=== PATIENT | male | born 1935 | race African-American/Black ===

== ENCOUNTER 2019-05-30 20:26 | Emergency (ER) | payer OTHER ==
[~2019-05-30] VITALS: Ht 167.6 cm; Wt 68.0 kg
[2019-05-31 00:04] LABS: CHLORIDE 111 mEq/L (98-107)
[2019-05-31 00:13] LABS: HEMATOCRIT. 29.5 % (42.0-52.0); MEAN CORPUSCULAR HEMOGLOBIN 32.5 pg (28.0-32.0); MEAN CORPUSCULAR VOLUME 96.2 fL (80.0-94.0); MEAN PLATELET VOLUME 9.1 fl (7.4-10.4); PLATELET 219 x1000/uL (130-400); RED BLOOD CELL COUNT 3.07 mill/uL (4.7-6.1); RED CELL DISTRIBUTION WIDTH 17.4 % (11.6-14.6)
[2019-05-31 01:15] LABS: PLATELET ESTIMATE NORMAL
[2019-05-31] MEDS: SODIUM CHLORIDE 0.9% 1,000 ML IV ONE (01:45)
[2019-05-31] MEDS: CEFTRIAXONE 1 G PREMIX 50 ML IV NR (02:30)
[2019-05-31 04:56] LABS: CLARITY URINE CLOUDY (CLEAR); COLOR URINE DARK YELLOW (YELLOW); KETONES URINE NEGATIVE (NEGATIVE); LEUKOCYTE ESTERASE URINE 1+ (NEGATIVE); NITRITE URINE NEGATIVE (NEGATIVE); OCCULT BLOOD URINE 3+ (NEGATIVE); PROTEIN URINE 3+ (NEGATIVE); SPECIFIC GRAVITY URINE 1.019 (1.005-1.030); UROBILINOGEN URINE 0.2 E.U./dL (0.2-1.0)
[2019-05-31 06:17] VITALS: BP 162/73
== END 2019-05-31 06:58 | disposition short-term general hospital (02) ==
LOC: ER 20:26
DX: R53.1 Weakness (principal); K72.90 Hepatic failure, unspecified without coma; N39.0 Urinary tract infection, site not specified; C49.4 Malignant neoplasm of connective and soft tissue of abdomen; I10 Essential (primary) hypertension; F12.10 Cannabis abuse, uncomplicated; Z88.6 Allergy status to analgesic agent
CPT/HCPCS: 36415; 70450; 74176; 76700; 80053; 81003; 82140; 85025; 93005; 96361; 96365; 96366; 99285; J0696